=== PATIENT | female | born 1975 | race Asian ===

== ENCOUNTER 2017-02-24 14:24 | Inpatient (IN) | payer OTHER ==
[2017-02-24] MEDS ORDERED: LR 1,000 ML IV PRN (15:44)
[2017-02-24] MEDS ORDERED: EPSOM SALT 454 GM TP PRN (15:44)
[2017-02-24] MEDS ORDERED: TERBUTALINE SULFATE 1 MG/ML VIAL IV PRN (15:44)
[2017-02-24] MEDS ORDERED: OLIVE OIL 118 ML BTL MISC PRN (15:44)
[2017-02-24] MEDS ORDERED: OXYTOCIN/RINGERS LACTATE 1,000 ML IV PRN (15:44)
[2017-02-24 16:07] LABS: % IMMATURE GRANULYOCYTES 0.6 % (0.0-1.1); ABSOLUTE IMMATURE GRANULOCYTES 0.05 10^3/uL (0.00-0.10); ADD DIFF? NO; ADD MORPH? NO; ADD SCAN? NO; ATYPICAL LYMPHOCYTE FLAG 0 (0-99); FRAGMENT RBC FLAG 0 (0-99); HEMATOCRIT 33.9 % (38.0-47.0); HEMOGLOBIN 11.4 g/dL (12.6-16.3); LEFT SHIFT FLG 0 (0-99); LIPEMIA HEMOLYSIS FLAG 80 (0-99); MEAN CELL HEMOGLOBIN 32.2 pg (27.9-34.1); MEAN CELL HEMOGLOBIN CONCENTR. 33.6 g/dL (32.4-36.7); MEAN CELL VOLUME 95.8 fL (81.5-99.8); MEAN PLATELET VOLUME 10.3 fL (8.7-11.7); PLATELET CLUMPS FLAG 10 (0-99); PLATELET COUNT 213 10^3/uL (150-400); RED BLOOD CELL COUNT 3.54 10^6/uL (4.18-5.33); RED CELL DISTRIBUTION WIDTH 12.8 % (11.5-15.2)
[2017-02-24] MEDS ORDERED: LR 500 ML IV PRN (18:16)
[2017-02-24] MEDS ORDERED: ACETAMINOPHEN 500 MG TAB PO PRN (18:18)
[2017-02-24] MEDS ORDERED: CALCIUM CARBONATE 500 MG CHEWABLE TAB PO PRN (18:18)
[2017-02-24] MEDS ORDERED: ZOLPIDEM TARTRATE 5 MG TAB PO PRN (18:19)
[2017-02-24] MEDS ORDERED: OXYTOCIN/RINGERS LACTATE 500 ML IV SCH (18:30)
--- NOTE | 2017-02-24 18:46 | GHP ---
[f rep st] HISTORY AND PHYSICAL DATE OF ADMISSION: 02/24/2017 ADMISSION DIAGNOSIS: Intrauterine at 38-2/7 weeks' gestation for induction of labor secondary to oligohydramnios. HISTORY OF PRESENT ILLNESS: The patient is a 41-year-old, 1, para 0, with a last menstrual period of 05/21/2016 and an EDC of 03/08/2017, which was set by a 7-week ultrasound. She has had good care at [facility] since 7-4/7 weeks' gestation and has had a relatively uncomplicated course. Her risk factors include advanced maternal age greater than 40. She has had normal ultrasounds at 20 weeks and a growth ultrasound in the third trimester, and we have monitored her with nonstress tests since 36 weeks. At 34 weeks, her ultrasound revealed estimated weight of 90th percentile. BHAVNA was borderline at 7.5. Nonstress tests were reactive, category 1. So the decision was made to start twice-weekly nonstress tests at 34 weeks and to do weekly AFIs. Repeat ultrasound at 35 weeks, BHAVNA increased to 11.1, and testing had been normal and was also reassuring at 37 weeks. Today's ultrasound at 38 and 2, BHAVNA was 4.7 with a maximal vertical pocket of 1.3. The fluid also looked heterogeneous, possible vernix versus meconium. Nonstress test in the office today, baby was in the 160s to 180s with accels. So, secondary to the tachycardia as well as the oligohydramnios, the decision was made to proceed with induction of labor today , and patient was transferred to Labor and Delivery. She was given a 500 cc bolus of IV fluids and had continuous monitoring. Baby's status was reassuring, and the baseline decreased to the 150s. She was reactive, category 1 for several hours, and she has had minimal contractions. So the patient will be an inpatient for a Patterson for cervical ripening tonight and have Pitocin for induction of labor tomorrow. PAST OBSTETRICAL HISTORY: The patient has no past obstetrical history. This is her first . PAST GYNECOLOGICAL HISTORY: She has normal menstrual cycles, normal menstrual triad. Menarche at 11. Intervals every 30 days. They last 5 days. This was a planned . She has no significant gynecological problems. She did have a history of an abnormal Pap and was treated with cryo in 2003. She has had negative Pap since. 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 Her father was also a hepatitis B carrier. She has never been ill from this. She has no other medical history. PAST SURGICAL HISTORY: She had oral surgery 6 years ago. ALLERGIES: She has a sensitivity to vitamin C and zinc. She gets rashes with increased dose. MEDICATIONS: Include vitamins, folic acid, fish oil, and Claritin p.r.n. LABS: She is AB positive. Antibody negative. RPR nonreactive. Rubella immune. Hepatitis positive, known carrier. HIV negative. She declined all genetic testing. She did have an AFP that was negative. 1-hour GTT was 121. GBS was negative. SOCIAL HISTORY: She is . She lives with her . She works as an school resource officer. She denies tobacco, alcohol, and drug use. FAMILY HISTORY: Father hepatitis B. Paternal grandfather had mild Alzheimer's. OBJECTIVE: Today she is afebrile. Vital signs are stable. heart tones are in the 140s to 150s, reactive, moderate variability, category 1. She is marina irregularly. Cervix on exam is closed and 50%. REVIEW OF SYSTEMS: A 10-point review of systems is negative. There are no complaints at all. ASSESSMENT AND PLAN: A 41-year-old, 1, para 0, at 38-2/7 weeks' gestation with baby with oligohydramnios for induction of labor. A Patterson catheter was placed today without difficulty. She will have that for cervical ripening overnight, and Pitocin will start in the morning. /[id number]/MODL MTDD
[2017-02-24] MEDS ORDERED: LIDOCAINE 1% 300 MG/30 ML SDV ONE (19:49)
[2017-02-24] MEDS ORDERED: OLIVE OIL 118 ML BTL ONE (19:49)
[2017-02-24] MEDS ORDERED: OXYTOCIN 10 UNIT/ML VIAL ONE (19:50)
[2017-02-24] MEDS ORDERED: TERBUTALINE SULFATE 1 MG/ML VIAL ONE (19:50)
[2017-02-24] MEDS ORDERED: MISOPROSTOL 200 MCG TAB ONE (19:50)
--- NOTE | 2017-02-25 10:10 | OBPROG ---
OBG Progress Note Assessment/Plan: Assessment: Plan: Subjective: patient beginning to feel more cramping and marina. simmons bulb still in place. pitocin going. discussed management plans. patient plans epidural. will get epidural before arom. will continue to monitor. Objective: 02/24/17 15:40 Patient ABO/Rh AB POSITIVE 02/24/17 15:40 - SVE Dilation (cm): 1, 2 Effacement (%): 50 Station: -2 Current Contraction Pattern: Regular FHR Pattern Variability: Moderate FHR Category: 1 Membranes: Intact ICD10 Worksheet Patient Problems: Problems Problem Status Onset Arrest of dilation, delivered, current hospitalization Acute Oligohydramnios Acute Status post primary low transverse section Acute
[2017-02-25] MEDS ORDERED: BUPIVACAINE 0.25% 30 ML SDV ONE (12:20)
[2017-02-25] MEDS ORDERED: fentaNYL 2MCG/ML/BUP 0.1% RTU 100 ML BAG EP ONE (12:20)
[2017-02-25] MEDS ORDERED: PHENYLEPHRINE HCL 100 MCG/ML SYR ONE (12:20)
--- NOTE | 2017-02-25 13:15 | OBPROG ---
OBG Progress Note Assessment/Plan: Assessment: Plan: Subjective: patient comfortable with epidural. simmons bulb still in. pitocin at 16 mu. discussed arom now or later. would like to wait for now. will reassess. Objective: 02/24/17 15:40 Patient ABO/Rh AB POSITIVE 02/24/17 15:40 - SVE Dilation (cm): 2, 3 Effacement (%): 50 Station: -2 Current Contraction Pattern: Regular FHR Pattern Variability: Moderate FHR Category: 1 Membranes: Intact ICD10 Worksheet Patient Problems: Problems Problem Status Onset Oligohydramnios Acute
[2017-02-25] MEDS ORDERED: PHENYLEPHRINE HCL 100 MCG/ML SYR IVP PRN (13:47)
[2017-02-25] MEDS ORDERED: ONDANSETRON 4 MG/2 ML VIAL IVP PRN (13:47)
--- NOTE | 2017-02-25 13:50 | POSTANESTH ---
Post Anesthetic Evaluation Cardiovascular Status: Normal, Stable Respiratory Status: Normal, Stable, Similar to Pre-op Cond. Level of Consciousness/Mental Status: Can Participate in Eval, Alert and Oriented (Tolerated CSE well, stable, comfortable.) Pain Control: Adequate, Prn Tx Ordered Nausea/Vomiting Control: Adequate, Prn Tx Ordered Complications Possibly Related to Anesthesia: None Noted
--- NOTE | 2017-02-25 13:56 | PREANESOB ---
Obstetric Pre-Anesthesia Info - General Info Proposed Procedure: Labor and delivery with pitocin. : 1 Para: 0 WBD: 38 - Info Status: Full Term Monitors: External FHR Baseline (bpm): 130 FHR Pattern: Reassuring - Labor Status Cervical Dilation per last OB SVE: 2, 3 Station per last OB SVE: -2 Pitocin: In Use Indications for Labor Analgesia: Induction of Labor, Pain Control Labor Epidural: Proposed Anesthesia ROS: Hepatitis B. Induction. for oligohyramnios. Allergies/Adverse Reactions: Allergy/AdvReac Type Severity Reaction Status Date / Time No Known Allergies Allergy Unverified 02/24/17 14:59 Home Medications: Medication Instructions Recorded FOLIC ACID/MULTIVITS-MIN 02/24/17 [SUPERVITE EC CAPLET] Glucosamine 02/24/17 Vit27&Calcium/Iron/FA 02/24/17 [] Visit Medications: Generic Name Dose Route Start Last Admin Trade Name Freq PRN Reason Stop Dose Admin Acetaminophen 1,000 mg 02/24/17 18:18 Tylenol PO 08/23/17 18:17 Q6HRS PRN Pain, Mild/Fever, Can Take PO Calcium Carbonate 500 mg 02/24/17 18:18 Tums PO 08/23/17 18:17 TID PRN Indigestion Diphenhydramine HCl 25 - 50 mg 02/25/17 13:47 Benadryl Injection IVP 08/24/17 13:46 Q6HRS PRN Itching Lactated Ringer's 1,000 mls @ 0 mls/hr 02/24/17 15:44 02/25/17 05:57 Lr IV 08/23/17 15:43 1,000 mls PRN PRN Administration SEE PROTOCOL CONDITIONS Protocol Per Protocol Oxytocin/Lactated Ringer's 1,000 mls @ 150 mls/hr 02/24/17 15:44 Pitocin 20 Units/Lr (Premix) IV PRN PRN Post- bleeding Lactated Ringer's 500 mls @ 500 mls/hr 02/24/17 18:16 Lr IV PRN PRN Maternal Hypotension Oxytocin/Lactated Ringer's 500 mls @ 0 mls/hr 02/24/17 18:30 02/25/17 05:57 Pitocin 30 Units/Lr (Premix) IV 08/23/17 18:29 500 mls CONT [place] Administration Protocol Per Protocol Fentanyl/Bupivacaine HCl 100 mls @ 0 mls/hr 02/25/17 14:00 Fentanyl/Bupivacaine/Ns 2 Mcg/Ml 0.1% (Premix EP 03/07/17 13:59 CONT [place] Protocol As Directed Lactated Ringer's 500 mls @ 0 mls/hr 02/25/17 14:00 Lr IV 08/24/17 13:59 CONT [place] As Directed Ibuprofen 600 mg 02/24/17 15:44 Motrin PO 08/23/17 15:43 Q6HRS PRN post , inflammation Magnesium Sulfate 454 gm 02/24/17 15:44 Epsom Salt TP 08/23/17 15:43 PRN PRN perineal discomfort Cushing Oil 118 ml 02/24/17 15:44 Sweet Oil MISC 08/23/17 15:43 ONCE PRN preneal massage Ondansetron HCl 4 mg 02/25/17 13:47 Zofran IVP 08/24/17 13:46 Q4HRS PRN Nausea/Vomiting, Can't Take PO Phenylephrine HCl 100 mcg 02/25/17 13:47 Matt-Synephrine IVP 08/24/17 13:46 .Q2M PRN Hypotension Terbutaline Sulfate 0.25 mg 02/24/17 15:44 Brethine IV 08/23/17 15:43 ONCE PRN Tachysystole Zolpidem Tartrate 5 - 10 mg 02/24/17 18:19 Ambien PO 08/23/17 18:18 HS PRN Sleep/Insomnia Discontinued Medications Generic Name Dose Route Start Last Admin Trade Name Neha PRN Reason Stop Dose Admin Bupivacaine HCl Confirm 02/25/17 12:20 Sensorcaine 0.25% Sdv Administered 02/25/17 12:21 Dose 30 ml .ROUTE .STK-MED ONE Fentanyl/Bupivacaine HCl Confirm 02/25/17 12:20 Fentanyl/Bupivacaine/Ns 2 Mcg/Ml 0.1% (Premix Administered 02/25/17 12:21 Dose 100 ml EP .STK-MED ONE Lidocaine HCl Confirm 02/24/17 19:49 Lidocaine Hcl 1% Administered 02/24/17 19:50 Dose 300 mg .ROUTE .STK-MED ONE Misoprostol Confirm 02/24/17 19:50 Cytotec Administered 02/24/17 19:51 Dose 1,000 mcg .ROUTE .STK-MED ONE Cushing Oil Confirm 02/24/17 19:49 Sweet Oil Administered 02/24/17 19:50 Dose 118 ml .ROUTE .STK-MED ONE Oxytocin Confirm 02/24/17 19:50 Pitocin Administered 02/24/17 19:51 Dose 30 unit .ROUTE .STK-MED ONE Phenylephrine HCl Confirm 02/25/17 12:20 Matt-Synephrine Administered 02/25/17 12:21 Dose 1,000 mcg .ROUTE .STK-MED ONE Terbutaline Sulfate Confirm 02/24/17 19:50 Brethine Administered 02/24/17 19:51 Dose 1 mg .ROUTE .STK-MED ONE - Anesthesia History Response to Local Anesthetics: Normal Family Anesthesia History: Negative - Social History Substance Use/Abuse: Denies - Focused Exam Blood Pressure: 127/78 Heart Rate: 66 Height/Weight (Nursing): Height 170.18 cm Weight 85.275 kg ASA Status: II Labs: 02/24/17 15:40 Patient ABO/Rh AB POSITIVE 02/24/17 15:40 - Plan Anesthetic Plan: CSE Consent Signed and on Chart: Yes Patient/Guardian Understands and Agrees to Plan: Yes
[2017-02-25] MEDS ORDERED: LR 500 ML IV SCH (14:00)
[2017-02-25] MEDS ORDERED: fentaNYL 2MCG/ML/BUP 0.1% RTU 100 ML EP SCH (14:00)
--- NOTE | 2017-02-25 18:02 | OBPROG ---
OBG Progress Note Assessment/Plan: Assessment: Plan: Subjective: late entry from 1510 due to meditech down time patient comfortable with epidural. pitocin at 20 mu. simmons bulb came out with gentle traction. AROM - small amount of clear fluid noted. IUPC placed without difficulty. category 1 prior to AROM - no having category 2. will reposition and start amnioinfusion if needed. Objective: 02/24/17 15:40 Patient ABO/Rh AB POSITIVE 02/24/17 15:40 Temp Pulse Resp BP Pulse Ox 66 127/78 H 02/25/17 13:58 02/25/17 13:58 - SVE Dilation (cm): 3 Effacement (%): 50 Station: -2 Current Contraction Pattern: Regular FHR Pattern Variability: Moderate FHR Category: 1 Membranes: AROM Amniotic Fluid Color: Clear ICD10 Worksheet Patient Problems: Problems Problem Status Onset Oligohydramnios Acute
--- NOTE | 2017-02-25 18:03 | OBPROG ---
OBG Progress Note Assessment/Plan: Assessment: Plan: Subjective: patient comfortable. legs very numb. adequate contractions with pitocin. no change in cervix despite adequate contractions for 2 1/2 hours. will decrease dose of epidural and reposition and recheck in 2 hours or sooner if indicated Objective: 02/24/17 15:40 Patient ABO/Rh AB POSITIVE 02/24/17 15:40 Temp Pulse Resp BP Pulse Ox 66 127/78 H 02/25/17 13:58 02/25/17 13:58 - SVE Dilation (cm): 3 Effacement (%): 50 Station: -2 Current Contraction Pattern: Regular FHR Pattern Variability: Moderate FHR Category: 1 ICD10 Worksheet Patient Problems: Problems Problem Status Onset Oligohydramnios Acute
[2017-02-25] MEDS ORDERED: CEFAZOLIN 2 GM/DEXTROSE/100 ML BAG IV ONE (20:15)
[2017-02-25] MEDS ORDERED: CITRIC ACID/SODIUM CITRATE 30 ML UDCUP ONE (20:15)
[2017-02-25] MEDS ORDERED: ceFAZolin 2 GM/DEXTROSE 100 ML IV ONE (20:22)
[2017-02-25] MEDS ORDERED: CITRIC ACID/SODIUM CITRATE 30 ML UDCUP PO ONE (20:22)
--- NOTE | 2017-02-25 20:40 | OBPROG ---
OBG Progress Note Assessment/Plan: Assessment: Plan: Subjective: patient is more uncomfortable with contractions. no change in cervix despite adequate contractions. long discussion with patient and her about management options. discussed diagnosis of arrest of dilation. will proceed with PLTCS. Objective: 02/24/17 15:40 Patient ABO/Rh AB POSITIVE 02/24/17 15:40 Temp Pulse Resp BP Pulse Ox 66 127/78 H 02/25/17 13:58 02/25/17 13:58 - SVE Dilation (cm): 3 Effacement (%): 50 Station: -2 Current Contraction Pattern: Regular FHR Pattern Variability: Moderate FHR Category: 2 ICD10 Worksheet Patient Problems: Problems Problem Status Onset Oligohydramnios Acute
[2017-02-25] MEDS ORDERED: LIDO/EPI 2% **for epidural** 20 ML SDV ONE (20:43)
[2017-02-25] MEDS ORDERED: METOCLOPRAMIDE 10 MG/2 ML VIAL ONE (20:57)
[2017-02-25] MEDS ORDERED: ONDANSETRON 4 MG/2 ML VIAL ONE (20:57)
[2017-02-25] MEDS ORDERED: morphINE PF 5 MG/10 ML INJ ONE (21:10)
[2017-02-25] MEDS ORDERED: OXYTOCIN 100 UNITS/10 ML VIAL ONE (21:22)
[2017-02-25] MEDS ORDERED: HYDROmorphONE/DILAUDID 1 MG/ML SYR IVP PRN (22:08)
[2017-02-25] MEDS ORDERED: OXYCODONE/APAP 5/325 TAB PO PRN (22:08)
[2017-02-25] MEDS ORDERED: METOCLOPRAMIDE 10 MG/2 ML VIAL IVP PRN (22:08)
--- NOTE | 2017-02-25 22:09 | POSTANESTH ---
Post Anesthetic Evaluation Cardiovascular Status: Normal, Stable Respiratory Status: Normal, Stable Level of Consciousness/Mental Status: Can Participate in Eval Pain Control: Adequate, Prn Tx Ordered Nausea/Vomiting Control: Adequate, Prn Tx Ordered Complications Possibly Related to Anesthesia: None Noted
--- NOTE | 2017-02-25 22:12 | OBPROC ---
- Delivery Pre-op Diagnoses: IUP 38 2/7 weeks, arrest of dilation, hep b positive Post-op Diagnoses: same plus occiput posterior Procedure: Primary, Low Transverse Surgeon: Nirali Henley Pig Casting Machine Operator: Pepper Hebert Anesthesiologist: Leo Kennedy Anesthesia: Epidural Complications: None EBL: 800 - [place] Info Infant A Delivery Date: 02/25/17 Delivery Time: 21:15 Sex of : Male Score (1 Min): 8 Score (5 Min): 9
[2017-02-25] MEDS ORDERED: MAGNESIUM HYDROXIDE 30 ML UDCUP PO PRN (22:16)
[2017-02-25] MEDS ORDERED: DOCUSATE SODIUM 100 MG CAP PO PRN (22:16)
[2017-02-25] MEDS ORDERED: LACTULOSE 20 GM/30 ML UDCUP PO PRN (22:16)
[2017-02-25] MEDS ORDERED: POLYETHYLENE GLYCOL 3350 17 GM PKT PO PRN (22:16)
[2017-02-25] MEDS ORDERED: SIMETHICONE 80 MG TAB CHEW PO PRN (22:16)
[2017-02-25] MEDS ORDERED: BISACODYL 10 MG SUPP PR PRN (22:16)
[2017-02-25] MEDS ORDERED: MEPERIDINE 25 MG/ML SYR ONE (22:54)
[2017-02-25] MEDS ORDERED: MEPERIDINE 25 MG/ML SYR IVP ONE (23:00)
[2017-02-25] MEDS ORDERED: MEPERIDINE 25 MG/ML SYR IVP PRN (23:30)
[2017-02-25] MEDS ORDERED: KETOROLAC 30 MG/1 ML SDV ONE (23:42)
[2017-02-25] MEDS: KETOROLAC 30 MG/1 ML SDV IVP SCH (23:43)
--- NOTE | 2017-02-26 03:56 | GOP ---
[f rep st] OPERATIVE REPORT DATE OF OPERATION: 02/25/2017 SURGEON: Nirali Henley DO TIE PRESSER: ERICK Saavedra ANESTHESIA: Epidural with Duramorph. ANESTHESIOLOGIST: Dr. Kennedy PREOPERATIVE DIAGNOSIS: 1. Intrauterine at 38-3/7 weeks' gestation. 2. Oligohydramnios. 3. Arrest of dilation. POSTOPERATIVE DIAGNOSIS: 1. Intrauterine at 38-3/7 weeks' gestation. 2. Oligohydramnios. 3. Arrest of dilation. 4. Occiput posterior. PROCEDURE PERFORMED: FINDINGS: 1. Viable male in the occiput posterior presentation, delivered at 2114. Apgars were 8 and 9. 2. Intact placenta with 3-vessel cord. 1. Small nugget versus nodule of placental tissue in the posterior wall of the uterus. Normal ovar ies, uterus, and tubes. ESTIMATED BLOOD LOSS: 800 cc. INDICATIONS: Patient is a 41-year-old 1, para 0, who was 38-2/7 weeks' gestation. She pres ented for routine OB visit on 02/24/2017 and was measuring size less than dates. An ultrasound was performed which showed an amniotic fluid index of 4.7. The patient was sent over to Labor and [facility] for observation. Initially, heart tracings were tachycardic. However, she was given an I V fluid bolus, and status became reassuring. A Patterson bulb was placed through her cervix. Pat ient was kept overnight and started on Pitocin in the morning. Patient began having contractions in creasing in frequency and intensity in the morning. She requested an epidural which provided adequa te pain relief. After several hours of no cervical change, the Patterson bulb then was able to be withd rawn with gentle traction. Artificial rupture of membranes was performed. A small amount of clear fluid was noted. An intrauterine pressure catheter was then placed without difficulty. Patient was having adequate c ontractions. She did have up to 20 milliunits of Pitocin. She had adequate contractions for 6 hour s. She was examined twice during that time and declined any other intervention. After 6 hours of a dequate contractions, decision was made to proceed with a primary low transverse section. Risks and benefits have been extensively reviewed with the patient and her , and patient has been properly consented. DESCRIPTION OF PROCEDURE: Patient was taken to the operating room with intravenous fluids in place. Her epidural was already in place; it was rebolused. She was given 2 g of Ancef intravenously. S he was then placed in the dorsal supine position with a leftward tilt. A Patterson catheter was already in place. Venodynes were placed on her lower extremities. She was then prepped and draped in the normal sterile fashion. Anesthesia was assessed and found to be adequate. A Pfannenstiel skin incision was then made 2 fingerbreadths above the pubic symphysis. The incision was then carried through the underlying layer of fascia with the Bovie. The fascia was then nicked in the midline, and the fascial incision was extended laterally. The superior aspect of the fascia l incision was then grasped with a Kayode, tented up, and the underlying rectus muscle dissected off bluntly with the Bovie. Attention was then turned to the inferior aspect of the fascial incision, which, in a similar fashion, was grasped with Kochers, tented up, and the underlying rectus muscle d issected off bluntly with the Bovie. The rectus muscle was then in the midline. The moni toneum was then identified, tented up, and entered sharply with the Metzenbaum scissors. The incisi on was extended superiorly and inferiorly with excellent visualization of the bladder. The bladder blade was then inserted. The vesicouterine peritoneum was then identified, tented up, a nd entered sharply with the Metzenbaum scissors. The incision was extended laterally, and a bladder flap was created digitally. The bladder blade was then reinserted. The uterus was then incised in a low transverse fashion with the scalpel. The uterine incision was extended laterally. The infan t's head was noted to be well engaged low within the pelvis and in the occiput posterior presentatio n. The infant's head was delivered through the incision. The viable male was then delivered without difficulty. Delayed cord clamping was performed. Cord was clamped x2 and cut. The infant was handed off to awaiting nurse practitioner, and the cord blood was collected. Intact placenta with 3-vessel cord delivered without difficulty. The uterus was then exteriorized a nd cleared of all clots and debris, and a moist laparotomy sponge was wrapped around it. There was a small nodule of placental tissue in the posterior wall of the uterus; it was then removed. The bl adder blade was then reinserted. Forward clamps were used to grasp the edges of the hysterotomy. T he uterine incision was then closed with 0 Vicryl in a running locked fashion. A second [address] itch was used to imbricate the uterine incision. Hemostasis was assured. Ovaries, uterus, and tube s were unremarkable. The uterus was then returned to the patient's abdomen. The gutters were cleared of all clots and de bris. Hysterotomy remained hemostatic. Peritoneum was reapproximated with 3-0 Vicryl in a running fashion. Rectus muscle was reapproximated with 2-0 Vicryl in a running fashion. Fascia was closed with 0 Vicryl in a running fashion. Subcutaneous tissue was found to be hemostatic. Subcuticular t issue was reapproximated with 3-0 Vicryl in a running fashion. The skin was then closed with staple s. Sponge, lap, and needle count were correct x2. Patient was transported to recovery room in stab le condition. /[id number]/MODL
[2017-02-26] MEDS: KETOROLAC 30 MG/1 ML SDV IVP SCH ×3 (06:14→18:33)
--- NOTE | 2017-02-26 06:44 | POSTANESTH ---
Post Anesthetic Evaluation Cardiovascular Status: Normal, Stable Respiratory Status: Normal, Stable Level of Consciousness/Mental Status: Can Participate in Eval Pain Control: Adequate, Prn Tx Ordered Nausea/Vomiting Control: Adequate, Prn Tx Ordered Complications Possibly Related to Anesthesia: None Noted (Duramorph follow-up, pain well controlled, no complaints, denies MANDEL, mostor/sensory returning,)
--- NOTE | 2017-02-26 08:07 | OBPROG ---
OBG Progress Note Assessment/Plan: Assessment: 1) s/p 1LTCS secondary to arrest of dilation POD # 0.5 - pt is stable 2) Anemia Plan: Continue routine post-op care Encourage ambulation and IS Start po meds as ordered Dressing to be removed at 24 hrs Will start iron BID 02/26/17 08:07 Subjective: Pt seen and examined. She is exhausted. Pain is well controlled. Pt OOB once and lightheaded. Eating breakfast now-evangelist regular diet. Patterson in place. Passing flatus. Denies any f/c/n/v/CP or SOB. She is , so far no issues. Objective: 02/26/17 06:20 Patient ABO/Rh AB POSITIVE 02/24/17 15:40 Temp Pulse Resp BP Pulse Ox 36.6 C 68 16 102/64 94 02/26/17 04:05 02/26/17 06:05 02/26/17 04:05 02/26/17 04:05 02/26/17 06:05 Uterine Position/Fundal Height: Umbilicus -1 Uterine Tone: Firm - Physical Exam General Appearance: WD/WN, alert, no apparent distress Respiratory: lungs clear, normal breath sounds Cardiac/Chest: regular rate, rhythm Abdomen: normal bowel sounds, non-tender, soft, flatus (+), incision (C/D/I with chelsea), dressing (Intact, dry) Extremities: non-tender, normal inspection Neuro/Psych: alert, normal mood/affect, oriented x 3 ICD10 Worksheet Patient Problems: Problems Problem Status Onset Status post primary low transverse section Acute Arrest of dilation, delivered, current hospitalization Acute Oligohydramnios Acute
[2017-02-26] MEDS ORDERED: SCOPOLAMINE HYDROBROMIDE 1.5 MG PATCH TD ONE (09:27)
[2017-02-26] MEDS: IRON POLYSAC/IRON HEME 28 MG TAB PO SCH ×2 (12:27→19:42)
[2017-02-26] MEDS: SENNOSIDES/DOCUSATE SODIUM TAB PO SCH ×2 (14:25→19:42)
[2017-02-26] MEDS: HYDROCODONE/APAP 5/325 TAB PO PRN ×2 (19:43→23:45)
[2017-02-27] MEDS: IBUPROFEN 600 MG TAB PO PRN ×4 (00:39→18:15)
[2017-02-27] MEDS: HYDROCODONE/APAP 5/325 TAB PO PRN ×4 (03:52→23:58)
[2017-02-27] MEDS: SENNOSIDES/DOCUSATE SODIUM TAB PO SCH ×2 (09:09→19:58)
[2017-02-27] MEDS: IRON POLYSAC/IRON HEME 28 MG TAB PO SCH ×2 (09:09→19:58)
[2017-02-27] MEDS ORDERED: PATCH REMOVAL 1 EA PATCH TD ONE (09:27)
--- NOTE | 2017-02-27 12:25 | SOAPPROG ---
SOAP Progress Note Assessment/Plan: Assessment: POD 1 1/2 s/p C/S for arrest of dilation anemia Plan: Routine care 02/27/17 12:22 Subjective: Doing ok. Working on BF but nipples getting sore - some bld from left. Bld is light. urinating fine. Pain evangelist with norco and ibu. Objective: Vital Signs Temp Pulse Resp BP Pulse Ox 37.1 C 64 14 100/64 94 02/27/17 08:00 02/27/17 08:00 02/27/17 08:00 02/27/17 08:00 02/27/17 05:50 Laboratory Results 02/26/17 06:20 02/26/17 02/27/17 02/28/17 05:59 05:59 05:59 Intake Total 1000 Output Total 8396 2400 Balance -775 -2400 Physical Exam - Physical Exam General Appearance: WD/WN Abdomen: non-tender, soft, other (incision CDI, FF at umb -1) Pelvic Exam: vaginal bleeding (normal lochia) Extremities: non-tender, pedal edema (mild) Neuro/Psych: normal mood/affect ICD10 Worksheet Patient Problems: Problems Problem Status Onset Status post primary low transverse section Acute Arrest of dilation, delivered, current hospitalization Acute Oligohydramnios Acute
[2017-02-28] MEDS: IBUPROFEN 600 MG TAB PO PRN ×2 (02:23→08:22)
[2017-02-28] MEDS: HYDROCODONE/APAP 5/325 TAB PO PRN ×2 (05:43→10:20)
[2017-02-28] MEDS: IRON POLYSAC/IRON HEME 28 MG TAB PO SCH (08:22)
[2017-02-28] MEDS: SENNOSIDES/DOCUSATE SODIUM TAB PO SCH (08:23)
[2017-02-28 09:12] VITALS: BP 109/67; PULSE 69; RESP 18; TEMP 97.9; O2SAT 93
--- NOTE | 2017-02-28 09:37 | SOAPPROG ---
SOAP Progress Note Assessment/Plan: Assessment: POD 2 1/2 s/p C/S for arrest of dilation anemia Plan: Routine care, pt desires D/C 02/27/17 12:22 02/28/17 09:34 Subjective: Pt feels good and desires D/C. pain controlled with Mobile -2 at a time, and ibu. Bld decreased. urinating fine. Baby is latching ok - tender nipples - no blisters, using lanolin and gel packs. Objective: Vital Signs Temp Pulse Resp BP Pulse Ox 36.6 C 69 18 109/67 93 02/28/17 08:00 02/28/17 08:00 02/28/17 08:00 02/28/17 08:00 02/28/17 08:00 Laboratory Results 02/26/17 06:20 02/27/17 02/28/17 03/01/17 05:59 05:59 05:59 Output Total 2400 Balance -2400 Physical Exam - Physical Exam General Appearance: WD/WN Abdomen: non-tender, soft, other (incision CDI, FF at umb -1) Pelvic Exam: vaginal bleeding (normal lochia) Extremities: non-tender, pedal edema (mod ) Neuro/Psych: normal mood/affect ICD10 Worksheet Patient Problems: Problems Problem Status Onset Arrest of dilation, delivered, current hospitalization Acute Oligohydramnios Acute Status post primary low transverse section Acute
== END 2017-02-28 12:00 | disposition home or self-care (01) | DRG 765 ==
LOC: FLD 14:24 → OBSVTOIN 14:24 → FOB 02-26 00:08
PROVIDERS: ADMIT Obstetrics & Gynecology; ATTEND Obstetrics & Gynecology
PROC: 0U7C7DZ Dilation of Cervix with Intraluminal Device, Via Natural or Artificial Opening (ICD-10-PCS; principal; 2017-02-24)
PROC: 10D00Z1 Extraction of Products of Conception, Low, Open Approach (ICD-10-PCS; principal; 2017-02-24)
PROC: 10907ZC Drainage of Amniotic Fluid, Therapeutic from Products of Conception, Via Natural or Artificial Opening (ICD-10-PCS; principal; 2017-02-24)
PROC: 3E033VJ Introduction of Other Hormone into Peripheral Vein, Percutaneous Approach (ICD-10-PCS; principal; 2017-02-24)
DX: O41.03X0 Oligohydramnios, third trimester, not applicable or unspecified (principal); O66.40 Failed trial of labor, unspecified; O62.0 Primary inadequate contractions; O75.81 Maternal exhaustion complicating labor and delivery; O76 Abnormality in fetal heart rate and rhythm complicating labor and delivery; O90.81 Anemia of the puerperium; O32.8XX0 Maternal care for other malpresentation of fetus, not applicable or unspecified; B18.1 Chronic viral hepatitis B without delta-agent; Z3A.38 38 weeks gestation of pregnancy; Z37.0 Single live birth
CPT/HCPCS: J0690; J1885; J2274; J2370; J2405; J2590; J2765; J3105

== ENCOUNTER → 2018-11-04 | Outpatient (CLI) | payer OTHER | LOC: FIMAGING 10:07 | PROVIDERS: ATTEND Family Medicine | DX: R05 Cough (principal) ==